=== PATIENT | female | born 1985 | race Caucasian/White ===

== ENCOUNTER 2017-06-12 12:16 | Inpatient (IN) | payer MEDICAID ==
[2017-06-12] MEDS ORDERED: CARBOPROST 250 MCG INJ IM ×2 (17:00)
[2017-06-12] MEDS ORDERED: OXYTOCIN 30 UNITS/LR 500 ML IV ×3 (17:00)
[2017-06-12] MEDS ORDERED: MISOPROSTOL 200 MCG TAB PR ×2 (17:00)
[2017-06-12] MEDS ORDERED: LIDOCAINE 1% (MPF) 30 ML INJ INJ (17:00)
[2017-06-12] MEDS ORDERED: METHYLERGONOVINE 0.2 MG INJ IM ×2 (17:00)
[2017-06-12] MEDS ORDERED: IBUPROFEN 600 MG TAB PO (17:00)
[2017-06-12] MEDS ORDERED: BUTORPHANOL 2 MG INJ IV (17:00)
[2017-06-12 17:13] LABS: RUPTURE FETAL MEMBRANES POSITIVE (NEGATIVE)
[2017-06-12 18:05] LABS: ADD MAN DIFF? NO
[2017-06-12 18:06] LABS: BASOPHILS % 0.2 % (0.0-2.0); EOSINOPHILS # 0.1 10^3/ul (0.0-0.5); EOSINOPHILS % 0.7 % (0.0-7.0); HEMATOCRIT 34.3 % (37.0-47.0); HEMOGLOBIN 10.9 g/dl (12.0-16.0); LYMPHOCYTES # 1.9 10^3/ul (0.8-2.9); LYMPHOCYTES % 21.6 % (15.0-51.0); MEAN CORPUSCULAR HEMOGLOBIN 25.8 pg (29.0-33.0); MEAN CORPUSCULAR HGB CONC 31.8 g/dl (32.0-37.0); MEAN CORPUSCULAR VOLUME 81.1 fl (82.0-101.0); MEAN PLATELET VOLUME 10.7 fl (7.4-10.4); MONOCYTE # 0.9 10^3/ul (0.3-0.9); NEUTROPHIL # 5.8 10^3/ul (1.6-7.5); NEUTROPHILS % 67.3 % (39.0-77.0); PLATELET COUNT 239 10^3/UL (140-415); RED BLOOD COUNT 4.23 10^6/ul (4.20-5.40); RED CELL DISTRIBUTION WIDTH 15.8 % (11.5-14.5)
[2017-06-12 18:06] LABS: WHITE BLOOD COUNT 8.6 10^3/ul (4.8-10.8)
[2017-06-12 18:23] LABS: INR 0.82; PARTIAL THROMBOPLASTIN TIME 23.5 Sec (25.0-35.0); PROTIME 11.3 Sec (11.9-14.9); PT RATIO 0.9
[2017-06-12] MEDS: AMPICILLIN 2 GM/NS (PMX) 100 ML IV (18:45)
[2017-06-12] MEDS: AMPICILLIN 1 GM/NS (PMX) 50 ML IV ×2 (21:00→23:14)
[2017-06-12] MEDS: LACTATED RINGER'S 1,000 ML IV (21:00)
[2017-06-12 23:06] LABS: HEPATITIS B SURFACE ANTIGEN NEGATIVE (NEGATIVE)
[2017-06-13] MEDS: AMPICILLIN 1 GM/NS (PMX) 50 ML IV ×4 (03:11→14:54)
[2017-06-13] MEDS: LACTATED RINGER'S 1,000 ML IV ×2 (06:34→17:50)
[2017-06-13 15:07] LABS: RAPID PLASMA REAGIN NONREACTIVE (NR)
[2017-06-13] MEDS ORDERED: LACTATED RINGER'S 1,000 ML IV (15:46)
[2017-06-13] MEDS: CITRIC ACID/SODIUM CITRATE 15 ML CUP PO (16:01)
[2017-06-13] MEDS: FAMOTIDINE 20 MG INJ IV (16:01)
[2017-06-13] MEDS: METOCLOPRAMIDE 10 MG INJ IV (16:01)
[2017-06-13] MEDS ORDERED: morphine SULFATE/PF (10 MG/10 ML) INJ (16:52)
[2017-06-13] MEDS ORDERED: FENTAnyl 50 MCG/ML VIAL (16:53)
[2017-06-13] MEDS: CEFAZOLIN 2 GM/50 ML (PMX) 50 ML IVPB (16:54)
[2017-06-13] MEDS ORDERED: EPHEDrine SULFATE 50 MG/5 ML SYG (17:22)
[2017-06-13] MEDS ORDERED: ONDANSETRON 4 MG INJ (17:31)
[2017-06-13] MEDS ORDERED: PHENYLephrine (100 MCG/ML) 5ML SYG (17:31)
[2017-06-13] MEDS ORDERED: HYDROmorphONE (0.2 MG/ML) 10ML SYG IV (18:00)
[2017-06-13] MEDS ORDERED: PROCHLORPERAZINE 10 MG INJ IV (18:00)
[2017-06-13] MEDS ORDERED: ONDANSETRON 4 MG INJ IV ×2 (18:00→19:30)
[2017-06-13] MEDS ORDERED: MEPERIDINE 25 MG INJ IV (18:00)
[2017-06-13] MEDS ORDERED: DIPHENHYDRAMINE 50 MG INJ IV ×2 (18:00→19:30)
[2017-06-13] MEDS ORDERED: FENTAnyl 50 MCG/ML VIAL IV (18:00)
[2017-06-13] MEDS ORDERED: ZOLPIDEM 5 MG TAB PO (19:30)
[2017-06-13] MEDS ORDERED: HYDROmorphONE 0.5 MG/0.5 ML SYG IV ×2 (19:30)
[2017-06-13] MEDS ORDERED: NALOXONE (0.4 MG/ML) INJ IV (19:30)
[2017-06-13] MEDS: KETOROLAC 30 MG INJ IV (21:05)
[2017-06-14] MEDS: LACTATED RINGER'S 1,000 ML IV ×4 (00:27→21:30)
[2017-06-14] MEDS: OXYTOCIN 30 UNITS/LR 500 ML IV (02:57)
[2017-06-14] MEDS: KETOROLAC 30 MG INJ IV ×2 (05:23→10:49)
[2017-06-14 09:41] LABS: ADD MAN DIFF? NO
[2017-06-14 09:46] LABS: WHITE BLOOD COUNT 10.1 10^3/ul (4.8-10.8)
[2017-06-14 09:46] LABS: BASOPHILS % 0.2 % (0.0-2.0); EOSINOPHILS % 0.3 % (0.0-7.0); HEMATOCRIT 27.6 % (37.0-47.0); HEMOGLOBIN 8.8 g/dl (12.0-16.0); LYMPHOCYTES # 1.3 10^3/ul (0.8-2.9); LYMPHOCYTES % 12.5 % (15.0-51.0); MEAN CORPUSCULAR HEMOGLOBIN 25.9 pg (29.0-33.0); MEAN CORPUSCULAR HGB CONC 31.9 g/dl (32.0-37.0); MEAN CORPUSCULAR VOLUME 81.2 fl (82.0-101.0); MONOCYTE # 0.9 10^3/ul (0.3-0.9); MONOCYTES % 8.4 % (0.0-11.0); NEUTROPHIL # 7.9 10^3/ul (1.6-7.5); NEUTROPHILS % 78.3 % (39.0-77.0); PLATELET COUNT 190 10^3/UL (140-415); RED CELL DISTRIBUTION WIDTH 15.9 % (11.5-14.5)
[2017-06-14] MEDS: OXYCODONE/ACETAMINOPHEN (5/325) TAB PO (18:05)
[2017-06-14] MEDS: IBUPROFEN 600 MG TAB PO (23:15)
[2017-06-15] MEDS: LACTATED RINGER'S 1,000 ML IV ×3 (05:30→21:30)
[2017-06-15] MEDS: IBUPROFEN 600 MG TAB PO ×3 (06:32→18:00)
[2017-06-15] MEDS: FERROUS SULFATE (EC) 325 MG TAB PO ×2 (12:30→20:56)
[2017-06-15] MEDS: OXYCODONE/ACETAMINOPHEN (5/325) TAB PO ×2 (16:05→20:57)
[2017-06-15] MEDS ORDERED: IBUPROFEN 600 MG TAB PO (18:00)
[2017-06-16] MEDS: IBUPROFEN 600 MG TAB PO ×3 (00:37→06:54)
[2017-06-16] MEDS: LACTATED RINGER'S 1,000 ML IV (05:30)
[2017-06-16] MEDS: OXYCODONE/ACETAMINOPHEN (5/325) TAB PO (07:58)
[2017-06-16] MEDS: FERROUS SULFATE (EC) 325 MG TAB PO (07:59)
[2017-06-16] MEDS ORDERED: INFLUENZA VIRUS VACCINE 0.5 ML (DISPENSING) IM* (09:00)
[2017-06-16] MEDS: LANOLIN 7 GM TUBE TOP (09:01)
== END 2017-06-16 14:34 | disposition home or self-care (01) | DRG 766 ==
LOC: OBT 12:16 → L-D 12:16 → OBT 14:48 → PP1 06-13 23:26 → L-D 14:48
PROVIDERS: Obstetrics & Gynecology
PROC: 10D00Z1 Extraction of Products of Conception, Low, Open Approach (ICD-10-PCS; principal; 2017-06-13 16:15)
DX: O66.41 Failed attempted vaginal birth after previous cesarean delivery (principal); Z37.0 Single live birth; Z3A.40 40 weeks gestation of pregnancy
CPT/HCPCS: 76815; 76818; 84112; 85025; 85610; 85730; 86592; 86900; 86901; 87340; 90686; 94760; 99464

== ENCOUNTER 2017-07-17 19:05 | Emergency (ER) | payer MEDICAID | END 2017-07-17 21:35 | disposition home or self-care (01) | LOC: FTE 19:05 → E/R 21:35 | DX: Z48.01 Encounter for change or removal of surgical wound dressing (principal) | CPT/HCPCS: 99283; Z7502 ==

== ENCOUNTER 2017-12-26 19:36 | Emergency (ER) | payer MEDICAID | END 2017-12-26 21:49 | disposition home or self-care (01) | LOC: FTE 19:36 | DX: L73.9 Follicular disorder, unspecified (principal) | CPT/HCPCS: 99284; Z7502 ==

== ENCOUNTER 2018-04-16 07:21 | Emergency (ER) | payer MEDICAID ==
[2018-04-16 08:08] LABS: ADD MAN DIFF? NO
[2018-04-16 08:13] LABS: WHITE BLOOD COUNT 7.1 10^3/ul (4.8-10.8)
[2018-04-16 08:13] LABS: BASOPHILS % 0.4 % (0.0-2.0); EOSINOPHILS # 0.1 10^3/ul (0.0-0.5); EOSINOPHILS % 1.1 % (0.0-7.0); HEMATOCRIT 36.9 % (37.0-47.0); HEMOGLOBIN 11.5 g/dl (12.0-16.0); LYMPHOCYTES % 27.8 % (15.0-51.0); MEAN CORPUSCULAR HEMOGLOBIN 25.8 pg (29.0-33.0); MEAN CORPUSCULAR HGB CONC 31.2 g/dl (32.0-37.0); MEAN CORPUSCULAR VOLUME 82.9 fl (82.0-101.0); MEAN PLATELET VOLUME 9.9 fl (7.4-10.4); MONOCYTE # 0.6 10^3/ul (0.3-0.9); MONOCYTES % 8.2 % (0.0-11.0); NEUTROPHIL # 4.4 10^3/ul (1.6-7.5); NEUTROPHILS % 62.2 % (39.0-77.0); PLATELET COUNT 305 10^3/UL (140-415); RED BLOOD COUNT 4.45 10^6/ul (4.20-5.40); RED CELL DISTRIBUTION WIDTH 15.7 % (11.5-14.5)
[2018-04-16 08:14] LABS: OCCULT BLOOD STOOL NEGATIVE (NEGATIVE)
[2018-04-16 08:36] LABS: ALANINE AMINOTRANSFERASE 30 IU/L (13-69); ALBUMIN 3.9 g/dl (3.3-4.9); ALBUMIN/GLOBULIN RATIO 1.25; ALKALINE PHOSPHATASE 84 IU/L (42-121); ANION GAP 10 (5-13); ASPARTATE AMINO TRANSFERASE 20 IU/L (15-46); BILIRUBIN,INDIRECT 0.3 mg/dl (0-1.1); BILIRUBIN,TOTAL 0.3 mg/dl (0.2-1.3); BLOOD UREA NITROGEN 9 mg/dl (7-20); CARBON DIOXIDE 27 mmol/L (21-31); CHLORIDE 102 mmol/L (97-110); Estimated GFR > 60 mL/min (>60); GLUCOSE 101 mg/dl (70-220); POTASSIUM 4.5 mmol/L (3.5-5.1); SODIUM 139 mmol/L (135-144)
== END 2018-04-16 09:17 | disposition home or self-care (01) ==
LOC: FTE 07:21
DX: K62.5 Hemorrhage of anus and rectum (principal)
CPT/HCPCS: 36415; 80053; 82270; 85025; 99284